=== PATIENT | male | born 1990 | race Caucasian/White ===

== ENCOUNTER 2024-03-18 20:38 | Emergency (ER) | payer BC, SELFPAY ==
[2024-03-18 20:53] VITALS: BP 152/76; PULSE 106; RESP 16; TEMP 36.9; O2SAT 97; BMI 39.0
--- NOTE | 2024-03-18 21:34 | ED.ANIMALBIT ---
HPI - Animal Bite General Time Seen by Provider: 21:34 Date Seen: 03/18/24 Chief Complaint: Animal Bite Stated Complaint: Dog bite R side Time Seen by Provider: 03/18/24 21:33 Source: patient Mode of arrival: ambulatory Limitations: no limitations History of Present Illness HPI narrative: Cisco is a very pleasant 33-year-old gentleman with history of tetanus vaccination in 2019 who comes to the emergency room after he was bit by his neighbor's dog. The dog and wandered into his yd. Sounds like the dog may have a history of aggressive behavior. He tried to shoo him back in the dog bit him in the right flank area. Police were contacted and it sounds like they are going to quarantine the dog. They are unsure of vaccination status and the neighbor stated that she would call the vet to find out if vaccinations were up-to-date tomorrow morning. Patient has had discomfort in this area. Has not washed this area. Patient is a prediabetic. Denies history of infection or hard to heal wounds. Related Data Home Medications ?Medication ?Instructions ?Recorded ?Confirmed atorvastatin 20 mg tablet 20 mg PO DAILY 03/18/24 03/18/24 fenofibrate 160 mg tablet 160 mg PO DAILY 03/18/24 03/18/24 levetiracetam 1,000 mg tablet 1,000 mg PO BID 03/18/24 03/18/24 metformin 500 mg tablet mg PO 03/18/24 Allergies Allergy/AdvReac Type Severity Reaction Status Date / Time No Known Drug Allergies Allergy Verified 03/18/24 20:59 Review of Systems Status of ROS: Reports: 6 or more systems reviewed and unremarkable except as noted in History and below [facility] Social History Smoking Status: Never smoker Do you use any of these nicotine containing products: None Second hand tobacco smoke exposure: No How often do you have a drink containing alcohol: monthly or less How often do you have six or more drinks on one occasion: Never AUDIT-C Alcohol total score: 1 Non-prescribed substance use: denies use service: No Exam Narrative: Exam Narrative: Patient is alert and oriented. Very pleasant gentleman. Presents with his . External ears eyes nose clear. Heart with regular rate and rhythm by my exam in the 90s. Lungs are clear bilaterally. Examination of the right flank shows linear superficial skin abrasion measuring approximately 10 cm. There are areas of a jagged skin avulsion. Wound is hemostatic at this time. Gently I do palpate I do not feel any foreign bodies. This seems to be limited to the dermis. No subcutaneous fascia or fat is noted. Const: Vital Signs, click to edit/add: Vital Signs - 24 hr 03/18/24 20:53 03/18/24 21:38 Temperature 98.5 F Pulse Rate [Pulse Oximeter] 106 H 104 H Respiratory Rate 16 18 Blood Pressure [Ri ght Upper Arm] 152/76 H 180/101 H Pulse Oximetry 97 98 Oxygen Delivery Me thod Room Air Room Air Documenting provider has reviewed patient's vital signs: yes Course Vital Signs Vital signs: Initial Vital Signs Temperature 98.5 F 03/18/24 20:53 Temperature Source Temporal Artery Scan 03/18/24 20:53 Pulse Rate 106 H 03/18/24 20:53 Respiratory Rate 16 03/18/24 20:53 Blood Pressure 152/76 H 03/18/24 20:53 Blood Pressure Mean 101 03/18/24 20:53 Blood Pressure Position Sitting 03/18/24 20:53 Pulse Oximetry 97 03/18/24 20:53 Oxygen Delivery Method Room Air 03/18/24 20:53 Vital Signs Temperature 98.5 F 03/18/24 20:53 Pulse Rate 106 H 03/18/24 20:53 Respiratory Rate 16 03/18/24 20:53 Blood Pressure 152/76 H 03/18/24 20:53 Pulse Oximetry 97 03/18/24 20:53 Oxygen Delivery Method Room Air 03/18/24 20:53 Temperature 98.5 F 03/18/24 20:53 Pulse Rate 104 H 03/18/24 21:38 Respiratory Rate 18 03/18/24 21:38 Blood Pressure 180/101 H 03/18/24 21:38 Pulse Oximetry 98 03/18/24 21:38 Oxygen Delivery Method Room Air 03/18/24 21:38 MDM - Animal Bite MDM Narrative Medical decision making narrative: 1. Dog bite-no evidence of foreign body at this time. We will have nursing staff wash this area. Did give the option of monitoring for infection versus prophylaxis and they would like to take an antibiotic. Will use Augmentin 875 p.o. b.i.d. x5 days. This was given through our [facility] med[facility] machine. They may apply bacitracin twice daily. Seek medical attention for worsening infection. Tetanus is up-to-date. They will follow-up with the police will already been contacted in their City. They note that the police stated that they would be monitoring the dog for the next 2 weeks. If it would began acting strangely or have evidence of rabies he is to seek medical attention as soon as possible. 2. Disposition-home at this time. Return as needed. Discharge Plan Discharge Clinical Impression: Bite by animal Patient Disposition: Home, Self-Care Condition: Improved Additional Instructions: You may shower but I would recommend against swimming in a [place] or [place]. Monitor for increasing infection. Augmentin is put into our [facility] med[facility] machine for you. Follow-up with police in regards to vaccination status of the dog and quarantine which will be recommended if it is unvaccinated. If dog's shows signs of rabies he will need to seek medical attention as soon as possible. Prescriptions: No Action metformin 500 mg tablet PO atorvastatin 20 mg tablet 20 mg PO DAILY fenofibrate 160 mg tablet 160 mg PO DAILY levetiracetam 1,000 mg tablet 1,000 mg PO BID Stand Alone Forms: [employer] Info Instructions
[2024-03-18 21:38] VITALS: BP 180/101; PULSE 104; RESP 18; O2SAT 98
--- NOTE | 2024-03-18 21:39 | PC.NURSE ---
Pt states he was outside doing yard work at his home, neighbor's dog got out and ran into their yard. Pt tried to gesture for dog to go back, neighbor came outside and dog attacked pt, biting him on right lower back/flank area. pt states neighbor ladamita stated her dog is UTD with vaccinations but did not have documentation to provide pt. Law enforcement called and also requesting information. Bleeding controlled. Last tetanus 2019.
--- OUTSIDE RECORDS SUMMARY | 2024-03-18 21:49 | XMS_ITS | Patient Health Record ---
Author Organization [facility] [place] Address [address] [place] [address] Care Team Providers Care Management Coordinator Name Role Phone Deidre Calvo MD Primary Care Provider Dandre Hubbard Unavailable [phone] ALLERGIES No Known Allergies REASON FOR REFERRAL No Information MEDICATIONS Medication SIG (Take, Route, Frequency, Duration) Notes Start Date End Date Status Vitamin B12 100 MCG as directed Orally (exact do se unknown) Active Vitamin D Orally Once a day for 30 day(s) Active levETIRAcetam 1000 MG TAKE ONE TABLET BY MOUTH TWICE A DAY for 90 Please call to schedule appointment Active Atorvastatin Calcium 10 MG 1 tablet Orally Once a day Active Multivitamin Adult - as directed Orally Active Probiotic Active SOCIAL HISTORY Tobacco Use: Social History Observation Description Date Details (start date - stop date) Never Smoker NA - NA Sex Assigned At : Social History Observation Description Sex Assigned At Unknown Alcohol Question Answer Notes Did you have a drink contain ing alcohol in the past year? Yes How often did you have a dri nk containing alcohol in the past year? Two to four times a month (2 points) How many drinks did you have on a typical day when you were drinking in the past year? 1 or 2 (0 points) How often did you have six o r more drinks on one occasion in the past year? 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9 kg 11/09/2023 BMI 37.81 kg/m2 11/09/2023 Encounters Encounter Location Date Provider Diagnosis [facility] [address] [place] [address] 11/09/2023 Dandre Espinal Other epilepsy, not intractable, without status epilepticus G40.802 ; Headache R51 ; Pure hypercholesterolemia, unspecified E78.00 and Other terminal operations supervisor (current) drug therapy Z79.899 [facility] [address] [facility] [address] [place] [address] 10/05/2023 Dandre Espinal ASSESSMENTS Encounter Date Diagnosis Assessment Notes Treatment Notes Treatment Clinical Notes 11/09/2023 Other epilepsy, not intractable, without status epilepticus (ICD-10 - G40.802) 11/09/2023 Headache (ICD-10 - R51) 11/09/2023 Pure hypercholesterolemia , unspecified (ICD-10 - E78.00) 11/09/2023 Other usp (current) drug therapy (ICD-10 - Z79.899) PLAN OF TREATMENT Pending Test Test Name Order Date COMPREHENSIVE METABOLIC PANEL 05/02/2016 COMPREHENSIVE METABOLIC PANEL 06/28/2017 COMPREHENSIVE METABOLIC PANEL 07/15/2020 CBC (INCLUDES DIFF/PLT) 05/02/2016 CBC (INCLUDES DIFF/PLT) 06/28/2017 CBC (INCLUDES DIFF/PLT) 07/15/2020 LEVETIRACETAM 07/15/2020 LEVETIRACETAM 06/28/2017 LEVETIRACETAM 05/02/2016 Future Test Test Name Order Date DEXA Scan 04/29/2013 COMPREHENSIVE METABOLIC PANEL 11/09/2023 CBC (H/H, RBC, INDICES, WBC, PLT) 2023 LEVETIRACETAM, SERUM/PLASMA 11/09/2023 Insurance Providers Payer Name Payer Address Payer Phone Subscriber Number Group Number Insured Name Patient Relationship to Insured Coverage Start Date Coverage End Date [employer] [place] [address] [address] [place] [address] [id number] Cy James Self - patient is the insured MEDICAL (GENERAL) HISTORY Medical History History ICD Code 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 high cholesterol. Surgical History Surgery Date(Month/Year)
--- OUTSIDE RECORDS SUMMARY | 2024-03-18 21:49 | XMS_ITS | Clinical Summary ---
Author Organization [facility] Address [place], [place] [address] Care Team Providers Care Tin Flopper Name Role Phone Clinic, [facility] Primary Care Prov ider Allergies No known active allergies Medications Medication Sig Dispensed Refills Start Date End Date Status levETIRAcetam (KEPPRA) 1,000 mg tablet Take 1 tablet by mouth 2 times daily. 180 tablet 4 03/18/2014 Active metFORMIN (GLUCOPHAGE) 500 mg tabletIndications:Ty pe 2 diabetes mellitus without complication, without long-term current use of insulin (HC) Take 2 Tablets (1,000 mg) by mouth two times daily with meals. 360 Tablet 3 05/23/2023 Active atorvastatin (LIPITOR) 20 mg tabletIndications:Hy pertriglyceridemia,T ype 2 diabetes mellitus without complication, without long-term current use of insulin (HC) TAKE ONE TABLET BY MOUTH AT BEDTIME 90 Tablet 2 12/29/2023 Active fenofibrate 160 mg tabletIndications:Hy pertriglyceridemia Take 1 Tablet (160 mg) by mouth once daily with a meal. 90 Tablet 3 01/19/2024 Active Active Problems Problem Noted Date Diagnosed Date Proteinuria due to type 2 diabetes mellitus 06/2024 Elevated blood pressure read ing without diagnosis of hypertension 05/22/2023 Type 2 diabetes mellitus wit hout complication, without long-term current use of insulin 02/08/2023 Hypertriglyceridemia 01/09/2023 Other hyperlipidemia 04/13/2020 BMI 40.0-44.9, adult 03/18/2014 Mixed headache 09/02/2011 Pure hypercholesterolemia 01/17/2007 Unspecified epilepsy without mention of intractable epilepsy 11/23/2005 Overview: Onset 2006. Seizure x2- 11/14 and 03/14. On medication- Keppra Encounters Date Type Department Care Team Description 12/28/2023 Refill [facility] [address] [place] [address] Jose Trujillo MD Refill Request (Atorvastatin) from Last 3 Months Immunizations Name Administration Dates Next Due DTP 02/14/1996 DTP-HIB 04/24/1992,04/22/1991,02/15/1991 ,1990 Hepatitis B (Peds) 04/29/2004,04/21/2003, 003,07/08/1998 Influenza,CCIIV4 PRESERV FREE 08/24/2019 MMR 04/21/2003,01/31/1992 Oral Polio Vaccine 02/14/1996,04/24/1992, 991,1990 Td (Age >=7 Years) 04/21/2003 Tdap 06/04/2019 Varicella Vaccine 07/08/1998 Family History Medical History Relation Name Comments Hyperlipidemia Father Hypertension Father Hypertension Mother Relation Name Status Comments Father Alive Mother Alive Pulmonary HTN, not regular HTN. Social History Tobacco Use Types Packs/Day Years Used Date Smoking Tobacco: Never Passive Smoke Exposure: Never Smokeless Tobacco: Never Tobacco Cessation:Counseling Given: No Alcohol Use Standard Drinks/Week Comments Yes 0 (1 standard drink = 0.6 oz pur e alcohol) occasional PHQ-2 Answer Date Recorded PHQ-2 TOTAL SCORE 0 01/09/2023 Social Connections Answer Date Recorded Frequency of Communication with Friends and Fami ly Not on file 01/16/2024 Financial Resource Strain Answer Date R ecorded Difficulty of Paying Living Expenses 3 01/09/2023 Difficulty of Paying Living Expenses Not on file 01/09/2023 Food Insecurity Answer Date Recorded Worried About Running Out of Food in the Last Ye ar 1 01/09/2023 Transportation Needs Answer Date Record ed Lack of Transportation (Medical) 1 01/09/2023 Housing Stability Answer Date Recorded Unable to Pay for Housing in the Last Year 1 01/09/2023 Sex and Gender Information Value Date Recorded Sex Assigned at Not on file Gender Identity Not on file Sexual Orientation Not on file Obstetrics History Last Filed Vital Signs Vital Sign Reading Time Taken Comments Blood Pressure 128/86 11/15/2023 8:04 AM NECK BAND SETTER Pulse 76 11/15/2023 8:04 AM NECK BAND SETTER Temperature 36.6 ??C (97.8 ??F) 10/10/2017 6:35 AM CS T Respiratory Rate 18 10/10/2017 7:52 AM NECK BAND SETTER Oxygen Saturation 98% 01/09/2023 3:42 PM CDT Inhaled Oxygen Concentration - - Weight 143.3 kg (316 lb) 11/15/2023 8:04 AM NECK BAND SETTER Height 191.8 cm (6' 3.51) 11/15/2023 8:04 AM CS T Body Mass Index 38.96 11/15/2023 8:04 AM NECK BAND SETTER Plan of Treatment Health Maintenance Due Date Last Done Comments Pneumococcal series for age 6-64 (1 of 2 - PCV) 1996 COVID-19 vaccine series (2022- season) 2023 10/05/2021, 02/13/2021, 01/23/2021 Depression screening for age 12+ 01/10/2024 01/10/20 23 Influenza for age 9-49 06/09/2024 08/24/2019 BMI (ht and wt on same day) for age 18+ 11/15/2024 11/15/2023, 07/10/2023, 01/09/2023 Tetanus booster 06/04/2029 06/04/2019, 04/21/2003 Hepatitis B series for Diabetes Completed 04/29/2004, 04/21/2003, 11/22/2002, Additional history exists Tdap Completed 06/04/2019 HIV for age 15-65 Completed 05/22/2023 Hepatitis C screening for ag e 18-79 Completed 05/22/2023 Procedures Procedure Name Priority Date/Time Associated Diagnosis Comments LC HIV-1/O/2, 4TH GENERATION Routine 05/22/2023 8:51 AM CDT Wellness examination LC HCV ANTIBODY RFX TO QUANT PCR Routine 05/22/2023 8:51 AM CDT Wellness examination from Last 3 Months or Most Recently Relevant to Health Maintenance Results * LC HCV ANTIBODY RFX TO QUANT PCR (05/22/2023 8:51 AM CDT) HCV Ab Non Reactive Non Reactive 05/24/2023 1:[address] [facility] Blood BLOOD SPECIMEN / Unknown Venipuncture / Unknown 05/22/2023 8:51 AM CDT 05/22/2023 8:58 AM CDT Narrative [facility] ([facility]) - 05/24/2023 1:10 PM CDT Performed at: ??[address] - [address] ??[id number] Chart Changer: Chema Mcnally MD, Phone: ??[phone] Jose Trujillo MD LABORATORY Performing Organization Address [facility]/ZIP Co de Phone Number [facility] ([facility]) [address] [place] [address] * HIV-1/O/2, 4TH GENERATION (05/22/2023 8:51 AM CDT) Pathologist [facility] HIV Scr 4th Gen Non Reactive Non Reactive 05/24/2023 11:[address] [facility] ([facility]) Comment: HIV Negative HIV-1/HIV-2 antibodies and HIV-1 p24 antigen were NOT detected. There is no laboratory evidence of HIV infection. Blood BLOOD SPECIMEN / Unknown Venipuncture / Unknown 05/22/2023 8:51 AM CDT 05/22/2023 8:58 AM CDT [facility] ([facility]) - 05/24/2023 11:10 AM CDT Performed at: ??[address] ??[id number] Chart Changer: Chema Mcnally MD, Phone: ??[phone] Jose Trujillo MD LABORATORY Performing Organization Address City/[facility]/ZIP Co de Phone Number [facility] ([facility]) [address] [place] [address] from Last 3 Months or Most Recently Relevant to Health Maintenance Care Teams Tin Flopper Relationship Specialty Start Date End Date Clinic, [facility] [address] [place] [address] PCP - General 12/31/20
--- OUTSIDE RECORDS SUMMARY | 2024-03-18 21:49 | XMS_ITS | Clinical Summary ---
Author Organization [facility] Address [address] [place] [address] Care Team Providers Care Materials Technician Name Role Phone No Ref-Primary, Physician Primary Care Provider Social History Tobacco Use Types Packs/Day Years Used Date Smoking Tobacco: Never Assessed Sex and Gender Information Value Date Recorded Sex Assigned at Not on file Gender Identity Not on file Sexual Orientation Not on file Plan of Treatment Not on file Care Teams Materials Technician Relationship Specialty Start Date End Date No Ref-Primary, Physician PCP - General 08/29/19
--- OUTSIDE RECORDS SUMMARY | 2024-03-18 21:49 | XMS_ITS | Referral Summary ---
Author Organization [facility] Address [address] [place] [address] Care Team Providers Care Adoption Coordinator Name Role Phone No Ref-Primary, Physician Primary Care Provider Social History Tobacco Use Types Packs/Day Years Used Date Smoking Tobacco: Never Assessed Sex and Gender Information Value Date Recorded Sex Assigned at Not on file Gender Identity Not on file Sexual Orientation Not on file Plan of Treatment Not on file Care Teams Adoption Coordinator Relationship Specialty Start Date End Date No Ref-Primary, Physician PCP - General 08/29/19
--- OUTSIDE RECORDS SUMMARY | 2024-03-18 21:49 | XMS_ITS | Clinical Summary ---
Author Organization [facility] Address [address] [place] [address] Phone [email or web address] Care Team Providers Care U.[place]. Senator Name Role Phone Unavailable Primary Care Provider Unavailabl e Allergies No known active allergies Medications Medication Sig Dispensed Refills Start Date End Date Status levETIRAcetam (KEPPRA) 1000 MG tablet 05/01/2019 Active Active Problems Problem Noted Date Diagnosed Date Other hyperlipidemia 04/13/2020 BMI 34.0-34.9,adult 03/18/2014 Epilepsy 11/23/2005 Overview: Onset 2005. Seizure x2- 11/14 and 03/14. On medication- Keppra Resolved Problems Problem Noted Date Diagnosed Date Resolved Date Prediabetes 06/05/2019 07/31/2020 Overview: Starting Metformin and recheck in 3 months. Immunizations Name Administration Dates Next Due Hep B (ENGERIX B RECOMBIVAX) Adol/Ped (CVX-08) 04/29/2004,11/22/2002,07/08/1998 Influenza, (Afluria Fluarix Flulaval Fluzone) quad, PF (CVX-150) 07/29/2020 MMR (M-M-R-II,PRIORIX) (TWO VIALS-MUST MIX) (CVX-03) 04/21/2003,01/31/1992 OPV (CVX-02) 02/14/1996, 2,02/15/1991, 991 Td (TdVax), adult, 2 Lf teta nus toxoid, PF, adsorbed (CVX-09) 04/21/2003 Tdap (ADACEL BOOSTRIX) (CVX-115) 06/04/2019 Varicella (VARIVAX) (TWO VIA LS-MUST MIX) (CVX-21) 07/08/1998 Family History Medical History Relation Name Comments Alcohol abuse Brother Chino Hypertension Father Diabetes Father's Sister Laccamryn Alcohol abuse Maternal Grandfather Luca Hypertension Maternal Grandfather Luca Alcohol abuse Maternal Grandmother Pat Heart disease Maternal Grandmother Pat Hypertension Maternal Grandmother Pat Stroke Maternal Grandmother Pat Early Paternal Grandfather Ewst Heart disease Paternal Grandfather West Hyperlipidemia Paternal Grandfather West Hypertension Paternal Grandfather West Cancer Paternal Grandmother Iliana Heart disease Paternal Grandmother Iliana Hyperlipidemia Paternal Grandmother Iliana Hypertension Paternal Grandmother Iliana Relation Name Status Comments Brother Chino Father Alive Father's Sister Lacelle Maternal Grandfather Luca Maternal Grandmother Pat Mother Alive Paternal Grandfather West Paternal Grandmother Iliana Social History Tobacco Use Types Packs/Day Years Used Date Smoking Tobacco: Passive Smo ke Exposure - Never Smoker Cigarettes Cigars Smokeless Tobacco: Never Comments:An occasional cigar , maybe once a month at most. Alcohol Use Standard Drinks/Week Comments Yes 1 (1 standard drink = 0.6 oz pure alcohol) I try to limit it to 1 drink a week due to my epilepsy. Intimate Partner Violence Answer Date R ecorded Insults You Not on file 01/19/2021 Threatens You Not on file 01/19/2021 Screams at You Not on file 01/19/2021 Physically Hurt Not on file 01/19/2021 Intimate Partner Violence Score Not on file 01/19/2021 Alcohol Use Answer Date Recorded Alcohol Use Status Yes 01/19/2021 Depression Answer Date Recorded PHQ Total Score Not on file 07/30/2021 Stress Answer Date Recorded Stress in your Life Not on file 01/19/2021 Dealing with Stress Not on file 01/19/2021 Sex and Gender Information Value Date Recorded Sex Assigned at Not on file Gender Identity Male 06/03/2019 9:25 AM CDT Sexual Orientation Straight 06/03/2019 9: 25 AM CDT Last Filed Vital Signs Vital Sign Reading Time Taken Comments Blood Pressure 106/66 04/09/2020 8:36 AM CDT Pulse 64 04/09/2020 8:23 AM CDT Temperature 35.9 ??C (96.7 ??F) 04/09/2020 8 :23 AM CDT IRT-forehead Respiratory Rate 16 04/09/2020 8:23 AM CDT Oxygen Saturation - - Inhaled Oxygen Concentration - - Weight 125 kg (275 lb 9.6 oz) 0 8:20 AM CDT Height 190.5 cm (6' 3) 04/09/2020 8:36 AM CDT Body Mass Index 34.45 04/09/2020 8:36 AM CDT Plan of Treatment Health Maintenance Due Date Last Done Comments Dental Cleaning/Exam 1990 Covid-19 Immunization ( season) 2023 Influenza Immunization (Season Ended) 2024 07/29/2020 Tetanus (Tdap or Td) Immunization 06/04/2029 06/04/2019, 04/21/2003 Polio Immunization Completed 02/14/1996, 0 04/24/1992, 02/15/1991, Additional history exists Varicella Immunization Aged Out 07/08/1998 No lo nger eligible based on patient's age to complete this topic Hepatitis B Immunization Completed 004, 11/22/2002, 07/08/1998 HIB Immunization Aged Out No longer e ligible based on patient's age to complete this topic HPV Immunization Aged Out No longer e ligible based on patient's age to complete this topic Hepatitis A Immunization Aged Out No longer eligible based on patient's age to complete this topic Pneumococcal: Ped (0 to 5 Yrs) and At-Risk Member (6 to 64 Yrs) Aged Out No longer eligible based on patient's age to complete this topic
--- NOTE | 2024-03-18 22:03 | PC.NURSE ---
research administrator cleaned up bite wound with sureclens, bacitracin applied. Reviewed discharge instructions with patient.
== END 2024-03-18 22:04 | disposition home or self-care (01) ==
LOC: ED 21:47
PROVIDERS: Emergency Provider Family Medicine; PCP Family Medicine
DX: S31.159A Open bite of abdominal wall, unspecified quadrant without penetration into peritoneal cavity, initial encounter (principal); W54.0XXA Bitten by dog, initial encounter
CPT/HCPCS: 99283

== ENCOUNTER 2024-06-11 15:04 | Emergency (ER) | payer BC, SELFPAY ==
[2024-06-11 15:11] VITALS: BP 147/89; PULSE 115; RESP 18; TEMP 37.1; O2SAT 98; BMI 37.5
[2024-06-11 17:20] VITALS: BP 149/86; PULSE 101; RESP 12; O2SAT 96
[2024-06-11 17:57] VITALS: O2SAT 97
--- NOTE | 2024-06-11 17:57 | ED_ITS ---
HPI - General Adult General Time Seen by Provider: 17:50 Date Seen: 06/11/24 Chief complaint: Chest Pain Stated complaint: Elev heartrate, chest discomfort Time Seen by Provider: 06/11/24 17:23 Source: patient and RN notes reviewed Mode of arrival: ambulatory Limitations: no limitations History of Present Illness HPI narrative: This 33-year-old male is coming to the ER with elevated heart rate and some chest discomfort. He notes that last night he awoke with a cold sweat, just really did not feel good, could not fall back asleep. He did check his pulse it was in the 80s at that time. He started to notice some soreness in his left chest, left arm and neck. This eventually just went away, he was able to fall back asleep. He got up this morning, was not having any issue. His symptoms came back around 1:00 p.m. coming he was at work. He felt his heart was fast, palpated his pulse to be around 110 at most, was in the 100-110 range at home. When he got here it was 115. He felt the soreness in his left chest arm and neck again. He has been waiting, due to the volume in the acuity in the ER he was not able to come back immediately. Nursing staff did get an EKG on arrival. I am seeing him and at 5:55 p.m., he states he is feeling better. Did recheck his pulse and it was 98-105 on pulse oximetry with 98% on room air. He has had no cough or cold symptoms. They did have a new baby 2 weeks ago that came a month early. He notes he is getting diminished sleep, has been caring the car seat with the baby around a lot more. He is wondering if it could just be chest discomfort. He is not been sick with any cough or cold symptoms. No fevers or chills. He is never had a heart diagnosis before but he is a diabetic on metformin, has his cholesterol treated with fenofibrate and Lipitor. He is also had a history of epilepsy and is on generic Keppra, when he was talking to his mom earlier, she told him the last time his heart rate was elevated was due to a seizure. He is not aware of any seizure activity. He has had no travel, no prolonged immobilization. No history of blood clots. 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 Family history is significant for paternal grandfather that from an [place] sometime in his 40s. His dad has elevated cholesterol but has not had any heart diagnosis. His mom is adopted knee do not know anything from that side of the family. He is not aware of any thromboembolic disease. Related Data Home Medications ?Medication ?Instructions ?Recorded ?Confirmed atorvastatin 20 mg tablet 20 mg PO DAILY 03/18/24 06/11/24 fenofibrate 160 mg tablet 160 mg PO DAILY 03/18/24 06/11/24 levetiracetam 1,000 mg tablet 1,000 mg PO BID 03/18/24 06/11/24 metformin 500 mg tablet mg PO 03/18/24 Allergies Allergy/AdvReac Type Severity Reaction Status Date / Time No Known Drug Allergies Allergy Verified 06/11/24 15:14 Review of Systems Status of ROS: Reports: 6 or more systems reviewed and unremarkable except as noted in History and below [facility] Medical History (Updated 06/11/24 @ 19:43 by Shena Ro MD) Epilepsy ?G40.909 - Epilepsy, unspecified, not intractable, without status epilepticus (ICD-10) Hyperlipidemia ?E78.5 - Hyperlipidemia, unspecified (ICD-10) Type 2 diabetes mellitus ?E11.9 - Type 2 diabetes mellitus without complications (ICD-10) Social History Smoking Status: Never smoker Do you use any of these nicotine containing products: None Second hand tobacco smoke exposure: No How often do you have a drink containing alcohol: monthly or less How often do you have six or more drinks on one occasion: Never AUDIT-C Alcohol total score: 1 Non-prescribed substance use: denies use service: No Exam Const: Vital Signs, click to edit/add: Vital Signs - 24 hr 06/11/24 15:11 06/11/24 17:20 06/11/24 17:57 Temperature 98.7 F Pulse Rate [Pulse Oximeter] 115 H 101 H Respiratory Rate 18 12 Blood Pressure [Ri ght Upper Arm] 147/89 H 149/86 H Pulse Oximetry 98 96 97 Oxygen Delivery Me thod Room Air Room Air Very pleasant 33-year-old male is alert, interactive, no apparent distress. Sclera clear, conjugate gaze, symmetrical facial function, speaking easily on room air and in complete sentences. Neck is supple, no adenopathy, jugular venous distension, no masses noted. Lungs are clear, good air entry, wheezing crackles. CV regular rate and rhythm, no murmur, normal S1-S2, no S3-S4. Abdomen is soft, nontender. He has no lower extremity edema. He is ambulatory into the ED of his own accord with a normal gait. Skin visualized without any rash. Documenting provider has reviewed patient's vital signs: yes Course Course ED Course: Patient should be able to come back from triage into room now, will monitor him on pulse oximetry. Will get appropriate labs including D-dimer and troponin. He has had symptoms briefly overnight and then symptoms from about 1:00 p.m. to almost 6:00 p.m. tonight, a single troponin at this time should give us sufficient information as it has been almost 5 hours. This certainly could be musculoskeletal, did review with him possibility of even something like COVID with the mild tachycardia. He will agree to be tested for COVID. Will look at a portable chest x-ray. Will get troponin to ensure no ischemic disease. His symptoms have improved, will not give him any aspirin at this time but will consider it if there is any concerning change on his troponin. Will do point of care troponin as well as confirm with the lab value. Reevaluation(s) Time of Reevaluation #1: 19:39 Reevaluation #1: Reviewed with patient his normal chest x-ray, normal laboratory evaluation minus the mildly elevated lactate. He is not aware of any seizure activity, does not reside alone, lives with his and family. D-dimer is negative, troponin is negative. COVID is negative. I would recommend that he follow up with his primary care provider, discuss cardiac stress testing in further monitoring if ongoing symptoms. Did offer to order cardiac stress testing through us here or allow him to follow up with his primary care provider. He states he will be seen his primary care provider this month, will return if worsening symptoms. I think this is fine. Vital Signs Vital signs: Initial Vital Signs Temperature 98.7 F 06/11/24 15:11 Temperature Source Temporal Artery Scan 06/11/24 15:11 Pulse Rate 115 H 06/11/24 15:11 Respiratory Rate 18 06/11/24 15:11 Blood Pressure 147/89 H 06/11/24 15:11 Blood Pressure Mean 108 H 06/11/24 15:11 Blood Pressure Position Sitting 06/11/24 15:11 Pulse Oximetry 98 06/11/24 15:11 Oxygen Delivery Method Room Air 06/11/24 15:11 Vital Signs Temperature 98.7 F 06/11/24 15:11 Pulse Rate 115 H 06/11/24 15:11 Respiratory Rate 18 06/11/24 15:11 Blood Pressure 147/89 H 06/11/24 15:11 Pulse Oximetry 98 06/11/24 15:11 Oxygen Delivery Method Room Air 06/11/24 15:11 Temperature 98.7 F 06/11/24 15:11 Pulse Rate 101 H 06/11/24 17:20 Respiratory Rate 12 06/11/24 17:20 Blood Pressure 149/86 H 06/11/24 17:20 Pulse Oximetry 97 06/11/24 17:57 Oxygen Delivery Method Room Air 06/11/24 17:20 Medical Decision Making Lab Data Lab results reviewed: Yes I reviewed the patient's lab results Labs: Lab Results 06/11/24 06/11/24 Range/Units 17:58 18:10 WBC 8.80 (4.50-11.00) K/uL RBC 5.17 (4.30-5.90) m/uL Hgb 16.1 (13.5-17.5) gm/dL Hct 47.2 (37.0-53.0) % MCV 91 (80-100) fL MCH 31 (26-34) pg MCHC 34 (32-36) gm/dL RDW Coeff of James 11.6 (11.5-15.5) % Plt Count 283 (140-440) K/uL Neut % (Auto) 65.4 (42.0-72.0) % Lymph % (Auto) 25.6 (20-44) % Duchesne % (Auto) 7.5 (0.0-11.0) % Eos % (Auto) 0.9 (0.0-7.0) % Baso % (Auto) 0.3 (0.0-3.0) % Neut # (Auto) 5.75 (1.7-7.0) K/uL Lymph # (Auto) 2.25 (0.90-2.90) K/uL Duchesne # (Auto) 0.70 (0.00-0.90) K/UL Eos # (Auto) 0.08 (0.00-0.50) K/uL Baso # (Auto) 0.03 (0.00-0.30) K/uL Abs Immat Gran (auto) 0.03 (0.00-0.30) K/uL Imm/Tot Granulo (auto) 0.3 % D-Dimer Quant (PE/DVT) < 0.27 (0.00-0.50) ug/ml VBG pH 7.357 (7.32-7.43) VBG pCO2 44 (40-50) mmHG VBG pO2 32.2 (25-47) mmHG VBG HCO3 22 (21-28) mmol/L Sodium 138 (135-149) mmol/L Potassium 3.6 (3.6-5.1) mmol/L Chloride 102 (96-114) mmol/L Carbon Dioxide 22 (20-32) mmol/L Anion Gap 14 (7-15) mEq/L BUN 18 (5-24) mg/dL Creatinine 0.8 (0.5-1.5) mg/dL Estimated Creat Clear 161.24 Estimated GFR 120 ml/min Glucose 160 H (60-115) mg/dL Lactate 2.8 H (0.5-1.9) mmol/L Calcium 9.6 (8.4-10.6) mg/dL Total Bilirubin 0.8 (0.1-1.5) mg/dL AST 35 (12-35) U/L ALT 50 (4-50) U/L Alkaline Phosphatase 59 (40-150) U/L Troponin I < 0.01 L (0.01-0.04) ng/mL C-Reactive Protein < 0.5 L (0.5-1.0) mg/dL NT-Pro-B Natriuret Pep < 20 pg/mL Total Protein 8.9 H (6.0-8.3) g/dL Albumin 5.4 H (3.3-5.0) g/dL SARS-CoV-2 (PCR) Negative SARS-CoV-2 (Negative) POC Troponin I 0.00 L (0.01-0.04) ng/ml Imaging Data Chest x-ray: Attestation: I have reviewed the pertinent imaging results. My impression: I do not appreciate any acute cardiopulmonary pathology, right costophrenic angle looks to be cut off by imaging. Await Radiology over-read. Radiologist's impression: Patient: JEAN COTA Facility:?[facility] Patient ID:?[id number] Site Patient ID:?[id number]. Site :?1990 Study:?XRay-Chest 1 VIEW PORTABLE-06/11/2024 6:29:45 PM Ordering Physician:ABRAHAM Final Report: INDICATION: Tachycardia, chest discomfort TECHNIQUE: Chest radiograph 1 view COMPARISON: None FINDINGS: The sensitivity and specificity of the exam are moderately limited by the patient`s body habitus. Mediastinum: The mediastinum is normal in appearance. The heart silhouette is normal in size and morphology. Lung: Both lungs are unremarkable in appearance. The right lateral lung base is excluded. No sign of pleural effusion seen. No pneumothorax is identified. Bone and Soft tissue: Unremarkable for age. IMPRESSION: 1. No acute cardiopulmonary disease is seen. Dictated by: Rigo Grullon MD @ 06/11/2024 18:45:00 (Electronic Signature) ECG Data Attestation: I personally reviewed and interpreted this ECG as follows: (Normal sinus rhythm with sinus arrhythmia, 89 beats per minute. Possible voltage criteria for LVH in aVL. No acute ischemic change her infarct noted.) Prior ECG tracings: not available for review Critical Care Time Critical Care Time Critical Care Time: No Discharge Plan Discharge Clinical Impression: Atrial tachycardia, Chest discomfort Patient Disposition: Home, Self-Care Condition: Stable Instructions: Chest Pain (ED), Tachycardia (ED) Additional Instructions: Need to follow-up with your primary care provider. Discuss cardiac stress testing as well as outpatient cardiac monitoring with a ZIO patch or similar c ardiac monitor, especially if you have ongoing elevated heart rate. If your heart rate does ever consistently go over 120 and is not returning back to baseline within a couple of hours or if it is never associated with chest discomfort, do recommend re-evaluation. Minimize caffeine, try to drink adequate fluids and increase your sleep if possible. Otherwise, light activity as tolerated until follow-up with your primary care provider. Activity Level: Activity as Tolerated Discharge Diet: Diabetic Prescriptions: No Action metformin 500 mg tablet PO atorvastatin 20 mg tablet 20 mg PO DAILY fenofibrate 160 mg tablet 160 mg PO DAILY levetiracetam 1,000 mg tablet 1,000 mg PO BID Follow Up/Referrals: Jose Trujillo MD [Primary Care Provider] - Stand Alone Forms: [employer] Info Instructions
--- NOTE | 2024-06-11 17:58 | XR_ITS ---
Patient: JEAN COTA Facility:?[facility] Patient ID:?[id number] Site Patient ID:?[id number]. Site :?1990 Study:?XRay-Chest 1 VIEW PORTABLE-06/11/2024 6:29:45 PM Ordering Physician:ABRAHAM Final Report: INDICATION: Tachycardia, chest discomfort TECHNIQUE: Chest radiograph 1 view COMPARISON: None FINDINGS: The sensitivity and specificity of the exam are moderately limited by the patient`s body habitus. Mediastinum: The mediastinum is normal in appearance. The heart silhouette is normal in size and morphology. Lung: Both lungs are unremarkable in appearance. The right lateral lung base is excluded. No sign of pleural effusion seen. No pneumothorax is identified. Bone and Soft tissue: Unremarkable for age. IMPRESSION: 1. No acute cardiopulmonary disease is seen. Dictated by: Rigo Grullon MD @ 06/11/2024 18:45:00 Signed by:?Rigo Grullon MD @06/11/2024 6:45:00 PM (Electronic Signature)
--- OUTSIDE RECORDS SUMMARY | 2024-06-11 18:12 | XMS_ITS | Patient Health Record ---
Author Organization [facility] Luis hartmann [place] Address [address] [place] [address] Care Team Providers Care Waste Picker Name Role Phone Umesh OSORIO, Deidre Primary Care Provider Dandre Hubbard Unavailable [phone] Allergies No Known Allergies Reason For Referral No Information Medications Medication SIG (Take, Route, Frequency, Duration) Notes [...] - as directed Orally Active Probiotic Active Social History Tobacco Use: Social History Observation Description Date Details (start date - stop date) Never Smoker NA - NA Alcohol Question Answer Notes Did you have [...] Current no n-smoker 1 cigar per month Problems Problem Type SNOMED Code ICD Code Onset Dates Problem Status W/U Status Risk Notes Problem Localization-related symptomatic epilepsy (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) Localization-r elated (focal) (partial) symptomatic epilepsy and epileptic syndromes with simple partial seizures, not intractable, without status epilepticus (G40.109) Active confirmed Problem Epilepsy, not intractable (516752371) Other epilepsy, not intractable, without status epilepticus (G40.802) Active confirmed Problem Headache (31728878) Headache (R51) Active confi rmed Problem Long-term current us e of drug therapy (336102417) 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 (Z79.899) Active confirmed Problem Pure hypercholesterolemia (245158965) Pure hypercholester olemia, unspecified (E78.00) Active confirmed Vital Signs Height 76 in 11/09/2023 Weight 140.9 kg 11/09/2023 BMI 37.81 kg/m2 11/09/2023 Encounters Encounter Location Date Provider Diagnosis [facility] [place] [address] [place] [address] 11/09/2023 Dandre Espinal Other epilepsy, not intractable, without status epilepticus G40.802 ; Headache R51 ; Pure hypercholesterolemia, unspecified E78.00 and 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] Coverage Start Date Coverage End Date RADHA MEZA [facility] [address] [address] [place] [address] [id number] Cy James Self - patient is the insured Medical (General) History Medical History History ICD Code 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 high cholesterol. Surgical History Surgery Date(Month/Year)
--- OUTSIDE RECORDS SUMMARY | 2024-06-11 18:12 | XMS_ITS | Clinical Summary ---
Author Organization [employer] [facility] Address [place], [place] [address] Care Team Providers Care Horticultural Farmer Name Role Phone Clinic, [facility] Primary Care Prov ider Allergies No known active allergies Medications Medication Sig Dispensed Refills Start Date End Date Status levETIRAcetam (KEPPRA) 1,000 mg tablet Take 1 tablet by mouth 2 times daily. 180 tablet 4 03/18/2014 Active atorvastatin (LIPITOR) 20 mg tabletIndications :Hypertriglycerid emia,Type 2 diabetes mellitus without complication, without long-term current use of insulin (HC) TAKE ONE TABLET BY MOUTH AT BEDTIME 90 Tablet 2 12/29/2023 Active fenofibrate 160 mg tabletIndications :Hypertriglycerid emia Take 1 Tablet (160 mg) by mouth once daily with a meal. 90 Tablet 3 01/19/2024 Active metFORMIN (GLUCOPHAGE) 500 mg tabletIndications :Type 2 diabetes mellitus without complication, without long-term current use of insulin (HC) Take 2 Tablets (1,000 mg) by mouth two times daily with meals. 360 Tablet 05/27/2024 Active metFORMIN (GLUCOPHAGE) 500 mg tabletIndications :Type 2 diabetes mellitus without complication, without long-term current use of insulin (HC) Take 2 Tablets (1,000 mg) by mouth two times daily with meals. 360 Tablet 3 05/23/2023 05/27/2024 Discontinued (Reorder (E-cancel not sent)) Active Problems Problem Noted Date Diagnosed Date [...] mention of intractable epilepsy 11/23/2005 Overview: Onset 2005. Seizure x2- 11/14 and 03/14. On medication- Keppra Encounters Date Type Department Care Team Description 04/02/2024 Telephone [facility] [address] [place] [address] Jose Trujillo MD Results 04/01/2024 9:10 AM CDT Office Visit [facility] [address] [place] [address] Jose Trujillo MD Diabetes 04/01/2024 Travel from Last 3 Months Immunizations Name Administration Dates Next Due DTP 02/14/1996 DTP-HIB 04/24/1992,04/22/1991,02/15/1991 ,1990 Hepatitis B (Peds) 04/29/2004,04/21/2003, 003,07/08/1998 Influenza, IIV3 (Age >=3 years) 07/29/2020 Influenza,CCIIV4 PRESERV FREE 08/24/2019 MMR 04/21/2003,01/31/1992 Oral [...] Answer Date Recorded PHQ-2 TOTAL SCORE 0 04/01/2024 Social Connections Answer Date Recorded Frequency of Communication with Friends and Fami ly 0 04/01/2024 Financial Resource Strain Answer Date R ecorded Difficulty of Paying Living Expenses 3 04/01/2024 Difficulty of Paying Living Expenses Not on file 04/01/2024 Food Insecurity Answer Date Recorded Worried About Running Out of Food in the Last Ye ar 1 04/01/2024 Transportation Needs Answer Date Record ed Lack of Transportation (Medical) 1 04/01/2024 Housing Stability Answer Date Recorded Unable to Pay for Housing in the Last Year 1 04/01/2024 Sex and Gender Information Value Date Recorded Sex Assigned at Not on file Gender Identity Not on file Sexual Orientation Not on file Obstetrics History Last Filed Vital Signs Vital Sign Reading Time Taken Comments Blood Pressure 138/84 04/01/2024 9:36 AM CDT Pulse 91 04/01/2024 9:36 AM CDT Temperature 36.6 ??C (97.8 ??F) 10/10/2017 6:35 AM CS T Respiratory Rate 18 10/10/2017 7:52 AM 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 Oxygen Saturation 97% 04/01/2024 9:36 AM CDT Inhaled Oxygen Concentration - - Weight 147.6 kg (325 lb 8 oz) 04/01/2024 9:36 AM CDT Height 191.8 cm (6' 3.51) 11/15/2023 8:04 AM CS T Body Mass Index 40.13 11/15/2023 8:04 AM 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 Plan of Treatment Health Maintenance Due Date Last Done Comments Pneumococcal series for age 6-64 (1 of 2 - PCV) 1996 COVID-19 vaccine series ( season) 2024 10/05/2021, 02/13/2021, 01/23/2021 Influenza for age 9-49 06/09/2024 07/29/2020, 2018 BMI (ht and wt on same day) for age 18+ 11/15/2024 11/15/2023, 07/10/2023, 01/09/2023 Depression screening for age 12+ 04/02/2025 04/02/2024, 04/01/2024, 01/09/2023 Tetanus booster 06/04/2029 06/04/2019, 04/21/2003 Hepatitis B series for Diabetes Completed 04/29/2004, 04/21/2003, 11/22/2002, Additional history exists Tdap Completed 06/04/2019 HIV for age 15-65 Completed 05/22/2023 Hepatitis C screening for ag e 18-79 Completed 05/22/2023 Procedures Procedure Name Priority Date/Time Associated Diagnosis Comments URINE ALBUMIN TO CREATININE RATIO, RANDOM Routine 04/01/2024 10:35 AM CDT Diabetes mellitus screening HEMOGLOBIN A1C Routine 04/01/2024 10:12 AM CDT Diabetes mellitus screening LC HIV-1/O/2, 4TH GENERATION Routine 05/22/2023 8:51 AM CDT Wellness examination LC HCV ANTIBODY RFX TO QUANT PCR Routine 05/22/2023 8:51 AM CDT Wellness examination from Last 3 Months or Most Recently Relevant to Health Maintenance Results * URINE ALBUMIN TO CREATININE RATIO, RANDOM (04/01/2024 10:35 AM CDT) ALB RAND URINE 18.2 mg/L 04/01/2024 10:01 PM CDT [facility] CREATININE,URIN E 0.86 g/L 04/01/2024 10:01 PM CDT [facility] ALBUMIN TO CREATININE RATIO,RAND UR 21.2 <30.0 mg/g creat 04/01/2024 10:01 PM CDT [facility] Urine URINE SPECIMEN / Unknown Non-Blood / Unknown 04/01/2024 10:35 AM CDT 04/01/2024 10:35 AM CDT Narrative [facility] - 04/01/2024 10:01 PM CDT If Albumin to Creatinine Ratio is elevated, consider the following: ? Elevations seen with incipient nephropathy associated ?? with diabetes mellitus or hypertension. Stress, exercise,hematuria, ?? and urinary tract infection may also produce elevated results. If clinically indicated, confirm with ?24 Hour Albumin to Creatinine Ratio. ?? Jose Trujillo MD URINE [facility] [address] [place] [address], * (ABNORMAL) HEMOGLOBIN A1C MONITORING (POCT) (04/01/2024 10:12 AM CDT) [facility] HEMOGLOBIN A1C MONITORING (POCT) 8.8(H) <=6.4 % 04/01/2024 10:12 AM CDT [facility] Blood BLOOD SPECIMEN / Unknown Venipuncture / Unknown 04/01/2024 10:12 AM CDT 04/01/2024 10:12 AM CDT Narrative [facility] - 04/01/2024 10:12 AM CDT ? (<=6.9%) ? Indicates good control ? (7.0% to 7.9%) ? Indicates fair control ? (>=8.0%) ? Indicates poor control ?? NOTE: ??These thresholds are guidelines and ?individual targets may vary. Falsely low levels may be seen with: Recent Transfusion, Recent Significant Blood Loss, Hemolytic Diseases, or Falsely elevated levels may be seen with: Untreated Anemias, Splenectomy ? Jose Trujillo MD CHEMISTRY [facility] [address] [place] [address], * LC HCV ANTIBODY RFX TO QUANT PCR (05/22/2023 8:51 AM CDT) [facility] HCV Ab Non Reactive Non Reactive 05/24/2023 1:10 PM CDT [facility] Blood BLOOD SPECIMEN / Unknown Venipuncture / Unknown 05/22/2023 8:51 AM CDT 05/22/2023 8:58 AM CDT Narrative [facility] - 05/24/2023 1:10 PM CDT Performed at: ??01 - [address] ??[id number] Change Management Director: Chema Mcnally MD, Phone: ??[phone] Jose Trujillo MD LABORATORY [facility] [address] [place] [address] * LC HIV-1/O/2, 4TH GENERATION (05/22/2023 8:51 AM CDT) HIV Scr 4th Gen Non Reactive Non Reactive 05/24/2023 11:10 AM CDT [facility] Comment: HIV Negative HIV-1/HIV-2 antibodies and HIV-1 p24 antigen were NOT detected. There is no laboratory evidence of HIV infection. Blood BLOOD SPECIMEN / Unknown Venipuncture / Unknown 05/22/2023 8:51 AM CDT 05/22/2023 8:58 AM CDT Narrative [facility] - 05/24/2023 11:10 AM CDT Performed at: ??[address] - [address] ??[id number] Change Management Director: Chema Mcnally MD, Phone: ??[phone] Jose Trujillo MD LABORATORY Performing Organization Address City/[facility]/ZIP Co de Phone Number [facility] [address] [place] [address] from Last 3 Months or Most Recently Relevant to Health Maintenance Care Teams Horticultural Farmer Relationship Specialty Start Date End Date Clinic, [facility] [address] [place] [address] PCP - General 12/31/20
--- OUTSIDE RECORDS SUMMARY | 2024-06-11 18:12 | XMS_ITS | Clinical Summary ---
Author Organization [facility] Address [address] [place] [id number] Care Team Providers Care Protection Agent Name Role Phone No Ref-Primary, Physician Primary Care Provider Social History Tobacco Use Types Packs/Day Years Used Date Smoking Tobacco: Never Assessed Sex and Gender Information Value Date Recorded Sex Assigned at Not on file Gender Identity Not on file Sexual Orientation Not on file Plan of Treatment Not on file Care Teams Protection Agent Relationship Specialty Start Date End Date No Ref-Primary, Physician PCP - General 08/29/19
--- OUTSIDE RECORDS SUMMARY | 2024-06-11 18:12 | XMS_ITS | Referral Summary ---
Author Organization [facility] Address [address] [place] [id number] Care Team Providers Care Fuel Yard Operator Name Role Phone No Ref-Primary, Physician Primary Care Provider Social History Tobacco Use Types Packs/Day Years Used Date Smoking Tobacco: Never Assessed Sex and Gender Information Value Date Recorded Sex Assigned at Not on file Gender Identity Not on file Sexual Orientation Not on file Plan of Treatment Not on file Care Teams Fuel Yard Operator Relationship Specialty Start Date End Date No Ref-Primary, Physician PCP - General 08/29/19
--- OUTSIDE RECORDS SUMMARY | 2024-06-11 18:12 | XMS_ITS | Clinical Summary ---
Author Organization [facility] Address [address] [place] [id number] Phone [email or web address] Team Providers Care Supervisor Insecticide Name Role Phone Unavailable Primary Care Provider [...] Stroke Maternal Grandmother Pat Early Paternal Grandfather West Heart disease Paternal Grandfather [place] Hyperlipidemia Paternal [...] Covid-19 Immunization ( season) 2023 Influenza Immunization (#1) 2024 07/29/2020 Tetanus (Tdap or Td) Immunization [...]
[2024-06-11 18:31] LABS: Basophils Absolute Auto 0.03 K/uL (0.00-0.30); Basophils Percent Auto 0.3 % (0.0-3.0); Eosinophils Absolute Auto 0.08 K/uL (0.00-0.50); Eosinophils Percent Auto 0.9 % (0.0-7.0); Hematocrit 47.2 % (37.0-53.0); Hemoglobin* 16.1 gm/dL (13.5-17.5); Immature Granulocytes Abs Auto 0.03 K/uL (0.00-0.30); Immature Granulocytes Pct Auto 0.3 %; Lymphocytes Absolute Auto 2.25 K/uL (0.90-2.90); Lymphocytes Percent Auto 25.6 % (20-44); Mean Corpuscular HGB Conc 34 gm/dL (32-36); Mean Corpuscular Hemoglobin 31 pg (26-34); Mean Corpuscular Volume 91 fL (80-100); Monocytes Percent Auto 7.5 % (0.0-11.0); Neutrophils Absolute Auto 5.75 K/uL (1.7-7.0); Neutrophils Percent Auto 65.4 % (42.0-72.0); Platelet Count* 283 K/uL (140-440); RDW Coefficient of Variation % 11.6 % (11.5-15.5); Red Blood Count 5.17 m/uL (4.30-5.90)
[2024-06-11 18:33] LABS: Slide Review Reflex No
[2024-06-11 18:44] LABS: Albumin* 5.4 g/dL (3.3-5.0); Chloride* 102 mmol/L (96-114); Sodium* 138 mmol/L (135-149)
[2024-06-11 18:45] LABS: Potassium* 3.6 mmol/L (3.6-5.1)
[2024-06-11 18:47] LABS: Alanine Aminotransferase* 50 U/L (4-50); Alkaline Phosphatase* 59 U/L (40-150); Anion Gap 14 mEq/L (7-15); Aspartate Amino Transferase* 35 U/L (12-35); Bilirubin Total* 0.8 mg/dL (0.1-1.5); Blood Urea Nitrogen* 18 mg/dL (5-24); Carbon Dioxide* 22 mmol/L (20-32); Creatinine* 0.8 mg/dL (0.5-1.5); Est. Creatinine Clearance* 161.24; Estimated Glomerular Filt Rate 120 ml/min; Glucose* 160 mg/dL (60-115); Total Protein* 8.9 g/dL (6.0-8.3)
[2024-06-11 18:48] LABS: Calcium* 9.6 mg/dL (8.4-10.6)
[2024-06-11 18:50] LABS: C Reactive Protein* < 0.5 mg/dL (0.5-1.0)
[2024-06-11 18:51] LABS: HCO3 VBG 22 mmol/L (21-28); Lactate* 2.8 mmol/L (0.5-1.9); PCO2 VBG 44 mmHG (40-50); PO2 VBG 32.2 mmHG (25-47); pH VBG 7.357 (7.32-7.43)
[2024-06-11 18:58] LABS: NT Pro B Type NatriureticPept* < 20 pg/mL
[2024-06-11 19:04] LABS: Troponin I* < 0.01 ng/mL (0.01-0.04)
[2024-06-11 19:05] LABS: D Dimer Quantitative* < 0.27 ug/ml (0.00-0.50)
[2024-06-11 19:09] LABS: SARS PCR* Negative SARS-CoV-2 (Negative)
[2024-06-11 20:03] VITALS: BP 135/75; PULSE 102; RESP 16; TEMP 36.8
== END 2024-06-11 20:03 | disposition home or self-care (01) ==
PROVIDERS: Emergency Provider Family Medicine; PCP Family Medicine
DX: R07.9 Chest pain, unspecified (principal); R00.0 Tachycardia, unspecified
CPT/HCPCS: 36415; 71045; 80053; 82803; 83605; 83880; 84484; 85025; 85379; 86140; 87635; 93005; 94761; 99284